=== PATIENT | female | born 1930 | race Caucasian/White ===

== ENCOUNTER → 2016-08-05 | Day surgery (SDC) | payer OTHER, BC ==
--- NOTE | 2016-07-22 10:42 | PAT Medication Instructions ---
Service Date Jul 22, 2016. Current Home Medication List Acetaminophen (Tylenol), 650 MG PO Q4 PRN for Pain Amlodipine (Norvasc), 5 MG PO BID Carvedilol (Coreg), 25 MG PO BID Cholecalciferol (Vitamin D3), 1 CAP PO QAM Ondansetron Hcl (Zofran), 8 MG PO UD Simethicone (Gas Relief Extra Strength), 1 CAP PO DAILY PRN for PRN Sulfa/Trimethoprim (Bactrim Ds 800MG/160MG), 1 TAB PO QAM [Trinephrocaps], 1 MG PO HS Medication Instructions For Your Scheduled Surgery Sulfa/Trimethoprim (Bactrim Ds 800MG/160MG), 1 TAB PO QAM (taking due to UTI- will finish prior to surgery) - Hold the following medications the morning of surgery: Simethicone (Gas Relief Extra Strength), 1 CAP PO DAILY PRN for PRN Cholecalciferol (Vitamin D3), 1 CAP PO QAM - Take the following medications the morning of surgery with a sip of water: Ondansetron Hcl (Zofran), 8 MG PO UD (only if needed) Acetaminophen (Tylenol), 650 MG PO Q4 PRN for Pain (if needed) Amlodipine (Norvasc), 5 MG PO BID Carvedilol (Coreg), 25 MG PO BID - Take the following medications as scheduled the night before surgery: Simethicone (Gas Relief Extra Strength), 1 CAP PO DAILY PRN for PRN Ondansetron Hcl (Zofran), 8 MG PO UD Trinephrocaps 1 MG PO HS Acetaminophen (Tylenol), 650 MG PO Q4 PRN for Pain Amlodipine (Norvasc), 5 MG PO BID Carvedilol (Coreg), 25 MG PO BID If you have any questions please call us at [phone] or [phone] ( [facility]) or [phone]
[2016-07-22 11:37] LABS: BASO % 0.5 %; BASO ABS # 0.03 K/uL (0-0.2); COMPLETE YES; EOS % 2.2 %; HEMATOCRIT 32.4 % (37-47); IG% 0.2 %; LYMPH % 24.6 %; LYMPH ABS # 1.36 K/uL (1.2-3.4); MEAN CELL VOLUME 93.9 fL (80-100); MEAN CORPUSCULAR HEMOGLOBIN 30.7 pg (25-34); MEAN CORPUSCULAR HGB CONC 32.7 g/dl (32-36); MONO % 8.5 %; PLATELET COUNT 201 K/uL (130-400); RED BLOOD COUNT 3.45 M/uL (4.2-5.4); WHITE BLOOD COUNT 5.52 K/uL (4.8-10.8)
[2016-07-22 11:47] LABS: BUN/CREATININE RATIO 6.1 (10-20); CALCIUM 8.9 mg/dl (8.5-10.1); CREATININE 3.5 mg/dl (0.60-1.20); POTASSIUM 3.5 mmol/L (3.5-5.1)
[~2016-08-05] VITALS: Ht 160 cm; Wt 52.6 kg
[~2016-08-05] MED LIST: ACET-1311 PO; AMLO-110 PO; ATROPINE SULFATE 0.1 MG/ML 5ML SYR IV PRN; CARV25TA2 PO; CHOL2000 PO; CIPROFLOXACIN 200MG / D5W IV SCH; DOXY100T17 PO; EpHEDrine SULFATE 50MG/5ML SYR ONE; EpHEDrine SULFATE INJ 50 MG/ML AMP IV PRN; FENTANYL CITRATE INJ 50 MCG/1 ML 2 ML VIAL ONE; LIDOCAINE HCL 2% 2 ML VIAL (20MG/ML) ONE; MITOMYCIN FOR INJ 40 MG in SYRINGE 40 ML IR SCH; ONDA8TAB6 PO; ONDANSETRON INJ 2 MG/ML 2 ML VIAL ONE; OXYC-57 PO; OXYCODONE/ACETAMINOPHEN 5-325 TAB PO PRN; PROPOFOL IV EMULSION 10 MG/ML 20 ML VIAL IV ONE; SIME125C52 PO; SODIUM CHLORIDE 0.9% 1000ML 1,000 ML IV SCH; SULF800T23 PO; [UNRECOGNIZED DRUG - OTHER] PO
[2016-08-05 05:57] VITALS: BP 164/53; PULSE 61; TEMP 36.6; O2SAT 98; Ht 160 cm; Wt 52.6 kg
[2016-08-05 06:24] LABS: BUN/CREATININE RATIO 7.6 (10-20); CALCIUM 8.9 mg/dl (8.5-10.1); CREATININE 2.8 mg/dl (0.60-1.20); POTASSIUM 3.5 mmol/L (3.5-5.1)
--- NOTE | 2016-08-05 07:06 | History & Physical Bridge Note ---
H&P Re-Evaluation Bridge Note: I have examined the patient, reviewed the History & Physical and in the interval since the performance of the History & Physical I have noted the following changes of clinical significance: No changes noted
--- NOTE | 2016-08-05 08:12 | [facility] Post Operative Brief Note ---
Immediate Operative Summary Operative Date August 05, 2016. Pre-Operative Diagnosis Malignant neoplasm of bladder Post-Operative Diagnosis Malignant neoplasm of bladder, bladder neck tumor Procedure(s) Performed Transuretheral Resection Bladder Tumor, Mytomycin Installation Surgeon Dr. Ze Duque Shot Hole Shooter Surgeon(s) None Estimated Blood Loss 10 cc Findings Circumferential bladder neck involvement of tumor all distal to UO, resected and fulgurated entirely, 40 cc Mitomycin instilled in 40 cc H2O. Specimens A: Bladder Neck Tumor B: Deeper Tumor Drains 16 fr mayo 10 cc H2O, plugged Anesthesia GALMA Complication(s) None Disposition Recovery Room / PACU
--- NOTE | 2016-08-05 08:17 | Discharge Instructions ---
Discharge Instructions Date of Service August 05, 2016. Admission Reason for Admission: Bladder Cancer Discharge Discharge Diagnosis / Problem: Bladder cancer s/p TURBT Discharge Goals Goal(s): Improve disease control, Therapeutic intervention Activity Recommendations Activity Limitations: per Instructions/Follow-up section Lifting Limitations: no more than 25 pounds, gradually increase as tolerated Exercise/Sports Limitations: rest today, gradually increase as tolerated May Resume Sexual Activity: when tolerated Shower/Bathe: no limitations Driving or Machine Use: resume 1 day after discharge . Instructions / Follow-Up Instructions / Follow-Up Urination might be difficult or change after procedure Complete doxycycline Percocet as needed for pain Discharge Diet Recommended Diet: Renal Diet (good fluid intake) Procedures Procedures Performed: Transuretheral Resection Bladder Tumor, Mytomycin Installation Pending Studies Studies pending at discharge: yes List of pending studies: Pathology results Medical Emergencies . Who to Call and When: Medical Emergencies: If at any time you feel your situation is an emergency, please call 911 immediately. . Non-Emergent Contact Non-Emergency issues call your: Urologist Call Non-Emergent contact if: you have a fever, temperature is above 101, your pain is not controlled, your pain is worsening, your pain is unusual for you, your pain is concerning you, wound has increased drainage, you have any medication questions . . "Provider Documentation" section prepared by Ze Duque. . VTE Core Measure Inpt VTE Proph given/why not?: SCD's [place] Drug Monitoring Program Search Results: patient reviewed within database, no issues identified (last Rx a year ago)
--- NOTE | 2016-08-05 08:50 | Anesthesiology Progress Note ---
Anesthesia Post Op Note Date & Time August 05, 2016 at 08:51 Vital Signs Pain Intensity: 0 Vital Signs Past 12 Hours Date Time Temp Pulse Resp B/P Pulse Ox O2 Delivery O2 Flow Rate FiO2 08/05/16 08:37 36.4 59 17 148/47 95 Room Air 08/05/16 08:36 60 20 08/05/16 08:36 60 20 96 08/05/16 08:35 152/49 08/05/16 08:31 57 15 98 08/05/16 08:31 57 15 08/05/16 08:30 145/46 08/05/16 08:26 57 18 100 08/05/16 08:26 58 18 08/05/16 08:25 57 14 144/48 100 08/05/16 08:25 57 14 08/05/16 08:25 57 14 144/48 100 08/05/16 08:25 57 14 08/05/16 08:20 56 10 08/05/16 08:20 55 10 135/47 100 08/05/16 08:20 55 10 135/47 100 08/05/16 08:20 56 10 08/05/16 08:15 57 4 146/47 100 08/05/16 08:15 57 4 08/05/16 08:15 57 4 146/47 100 08/05/16 08:15 36.5 57 16 146/47 100 Mask 10 08/05/16 08:15 57 4 08/05/16 05:57 36.6 61 18 164/53 98 Room Air Notes Mental Status: alert / awake / arousable, participated in evaluation Pt Amnestic to Procedure: Yes Nausea / Vomiting: adequately controlled Pain: adequately controlled Airway Patency, RR, SpO2: stable & adequate BP & HR: stable & adequate Hydration State: stable & adequate Anesthetic Complications: no major complications apparent
--- NOTE | 2016-08-05 08:56 | OPERATIVE REPORT ---
DATE OF OPERATION: 08/05/2016 PREOPERATIVE DIAGNOSIS: Recurrent bladder tumor. POSTOPERATIVE DIAGNOSIS: Recurrent circumferential bladder neck tumor. PROCEDURE: Transurethral resection of bladder tumor and instillation of mitomycin C, 5-6 cm of total tumor volume circumferentially. SURGEON: Dr. Ze Duque. PRINT DESIGNER: None. ANESTHESIA: General anesthesia with laryngeal mask. COMPLICATIONS: None. ESTIMATED BLOOD LOSS: 10 mL. SPECIMENS SENT TO PATHOLOGY: Bladder neck tumor and deeper tumor resection. DRAINS LEFT IN PLACE: Include a 16 [place] catheter to gravity drainage with 10 mL of sterile water in the balloon with 40 mg of mitomycin and 40 mL of water. FINDINGS: Circumferential bladder neck involvement of the tumor. All distal to the ureteral orifices with no deeper bladder involvement, resected and fulgurated in its entirety. Intravesical mitomycin x2 hours postoperatively 40 mg. BRIEF HISTORY: Ms. 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 She has recently started external beam radiation therapy for small lung lesions unchanged on recent CT scan. She is being brought back into the office seeing the presence of a bladder recurrence on her screening office cystoscopy. Previous histology was high grade a year ago. Intravenous ciprofloxacin was provided for antibiotic coverage. The patient has been covered with doxycycline for positive urine culture preoperatively. SCDs used for DVT prophylaxis. Informed consent reviewed with the patient and family preoperatively today. OPERATION AND FINDINGS: PROCEDURE: The patient was properly identified and brought to the operative suite. After identification and appropriate consent on the chart, general anesthesia with laryngeal mask was initiated. The patient was prepped and draped in standard fashion for this procedure. time cycle operator-out procedure was followed. Monopolar resectoscope was introduced into the bladder using a visual obturator under direct visualization and bladder was surveyed in its entirety including 30 and 70 degree lenses. This demonstrated a circumferential bladder neck abnormal tissue with the right ureteral orifice being well removed from the level of involvement. Bladder dome, lateral manriquez and essentially the rest of the bladder were negative for lesions. The site of the prior left ureteral orifice had been resected previously and is surgically absent. Using a monopolar loop the tumor was circumferentially resected. Unfortunately, in some areas this progressed into the proximal urethra and required resection and fulguration at this place as well. After all visible tumor had been resected and flushed free with deeper specimens being sent for separate pathologic analysis the area was fulgurated and excellent hemostasis was obtained. There was some concern for the need for circumferential bladder neck and transurethral resection and fulguration for both incontinence and future bladder neck stenosis and bladder outlet obstruction. After this was complete, bladder was surveyed and noted to be free of any tumor or additional abnormal tissue. Bladder was drained and resectoscope was removed. A 16 [place] Valverde catheter was placed and 40 mg of mitomycin and 40 mL water were instilled and catheter was plugged. Ten mL sterile water had been placed in the balloon. Anesthesia was reversed. The patient was transferred to recovery room in stable condition. FOLLOW-UP CARE: Bladder to be drained after 2 hours of instillation. Trial of void prior to discharge home. She is to complete her doxycycline as planned. Percocet for postoperative analgesia is provided. Outpatient appointments are confirmed. The patient is instructed to contact us should she note any fevers, chills, nausea, vomiting or other significant difficulties in the postoperative period. I attest to the content of the Intraoperative Record and any orders documented therein. Any exceptio ns are noted below.
[2016-08-05 09:05] VITALS: BP 153/63; PULSE 56; TEMP 36.6; O2SAT 94
[2016-08-05 09:35] VITALS: BP 159/67; PULSE 54; TEMP 36.6; O2SAT 94
[2016-08-05 10:05] VITALS: BP 159/66; PULSE 56; O2SAT 94
[2016-08-05 10:34] VITALS: BP 157/69; PULSE 56; TEMP 36.4; O2SAT 96
[2016-08-05 11:35] VITALS: BP 141/66; PULSE 56; TEMP 36.5; O2SAT 96
== END | disposition home or self-care (01) ==
LOC: C.ACU 05:13
PROVIDERS: ATTEND Urology
DX: C67.5 Malignant neoplasm of bladder neck (principal); R91.1 Solitary pulmonary nodule; C78.00 Secondary malignant neoplasm of unspecified lung; E78.00 Pure hypercholesterolemia, unspecified; I10 Essential (primary) hypertension; I09.9 Rheumatic heart disease, unspecified; C65.2 Malignant neoplasm of left renal pelvis; N39.0 Urinary tract infection, site not specified; Z85.3 Personal history of malignant neoplasm of breast

== ENCOUNTER → 2016-09-30 | Outpatient (CLI) | payer OTHER, BC ==
[~2016-09-30] MED LIST changes: -ATROPINE SULFATE 0.1 MG/ML 5ML SYR IV PRN; -CIPROFLOXACIN 200MG / D5W IV SCH; -EpHEDrine SULFATE 50MG/5ML SYR ONE; -EpHEDrine SULFATE INJ 50 MG/ML AMP IV PRN; -FENTANYL CITRATE INJ 50 MCG/1 ML 2 ML VIAL ONE; -LIDOCAINE HCL 2% 2 ML VIAL (20MG/ML) ONE; -MITOMYCIN FOR INJ 40 MG in SYRINGE 40 ML IR SCH; -ONDANSETRON INJ 2 MG/ML 2 ML VIAL ONE; -OXYCODONE/ACETAMINOPHEN 5-325 TAB PO PRN; -PROPOFOL IV EMULSION 10 MG/ML 20 ML VIAL IV ONE; -SODIUM CHLORIDE 0.9% 1000ML 1,000 ML IV SCH; -SULF800T23 PO
== END | disposition home or self-care (01) ==
LOC: C.LABSPEC 16:56
PROVIDERS: ATTEND Nurse Practitioner Family
DX: N39.0 Urinary tract infection, site not specified (principal)

== ENCOUNTER → 2017-02-03 | Outpatient (CLI) | payer OTHER, BC | END | disposition home or self-care (01) | LOC: C.LABSPEC 17:09 | PROVIDERS: ATTEND Urology | DX: N39.0 Urinary tract infection, site not specified (principal) ==

== ENCOUNTER → 2017-03-29 | Outpatient (CLI) | payer OTHER, BC ==
[~2017-03-29] MED LIST changes: -AMLO-110 PO; +AMLO5TAB3 PO; +ONDA-170 PO; -ONDA8TAB6 PO; -OXYC-57 PO; -SIME125C52 PO; +[UNRECOGNIZED DRUG - CODE] PO
== END | disposition home or self-care (01) ==
LOC: C.LABSPEC 17:39
PROVIDERS: ATTEND Urology
DX: N39.0 Urinary tract infection, site not specified (principal); C65.2 Malignant neoplasm of left renal pelvis

== ENCOUNTER → 2017-10-12 | Outpatient (CLI) | payer OTHER, BC ==
[~2017-10-12] MED LIST changes: +SIME125C52 PO; -[UNRECOGNIZED DRUG - CODE] PO
== END | disposition home or self-care (01) ==
LOC: C.LABSPEC 09:56
PROVIDERS: ATTEND Urology
DX: N39.0 Urinary tract infection, site not specified (principal)